=== PATIENT | female | born 1975 | race American Indian/Alaskan Native ===

== ENCOUNTER 2024-07-03 13:47 | Emergency (ER) | payer MEDICARE, MEDICAID ==
[~2024-07-03] VITALS: Ht 160 cm; Wt 98.6 kg
[~2024-07-03 13:47] MED LIST: ALBUPOW26; FLUT100M7; IPRA0.035
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
--- NOTE | 2024-07-03 15:03 | DVH ---
CLINICAL INDICATION: INJURY TECHNIQUE: 3 radiographic views of the cervical spine were obtained. Comparison: None FINDINGS/IMPRESSION: There is no evidence of acute fracture or dislocation. The visualized joint space is well maintained. There is reversal of the normal cervical lordotic curve. There is no radiopaque foreign body.
[2024-07-03 15:45] VITALS: BP 97/74; PULSE 97; RESP 18; TEMP 98; O2SAT 96
== END 2024-07-03 15:46 | disposition home or self-care (01) ==
LOC: ER 13:58
DX: M50.30 Other cervical disc degeneration, unspecified cervical region (principal); J45.909 Unspecified asthma, uncomplicated; F41.9 Anxiety disorder, unspecified; F32.A Depression, unspecified; R42 Dizziness and giddiness; R51.9 Headache, unspecified; Z79.51 Long term (current) use of inhaled steroids; Z88.0 Allergy status to penicillin; V47.5XXA Car driver injured in collision with fixed or stationary object in traffic accident, initial encounter; Y93.89 Activity, other specified; Y92.410 Unspecified street and highway as the place of occurrence of the external cause; Y99.8 Other external cause status
CPT/HCPCS: 72040